=== PATIENT | male | born 1965 | race Caucasian/White ===

== ENCOUNTER 2023-06-08 09:00 | Outpatient (RCR) | payer OTHER, SELFPAY ==
--- NOTE | 2023-04-26 10:57 | HP.PTEVAL ---
Patient's Visit Information Visit Information Visit Information: PHILLIP MEZA is a 58 year old M referred to Physical Therapy by SIDNEY HALL with a diagnosis of L femur fracture. Date of Evaluation: 04/26/23 Physical Therapist: Kunal Hughes DPT Visit Plan Frequency: 3x /Week Duration: 6 Weeks Plan: Physician had listed aquatic therapy as an option, but was not approved on his C9. I am asking to add this to his C9 in order to work on flexibility, mobility and aerobic fitness x1 per week in aquatic setting. He will do land PT x2 per week in conjunction. Working on LLE strength, ROM, Work on hip/core strengthening and stability in SLS. Once able to progress to work related strengthening as tolerated, simulate dragging hole, climbing ladder and lifting. Currently he will do x3 days per week on land working on core/hip strengthening, L hip ROM, HS stretching, hip flexor stretching. Progressing to dynamic strengthening as tolerated. If he gets approval we will switch to x1 day in pool, 2 on land. Subjective Subjective: Pt. is here today for his initial evaluation with diagnosis of L femur fracture with pinning. DOS: 12/09/22. Pt. was at [facility] for a few weeks then did home health. Now he is here. Pt. reports 10/20. Pt. is off until middle May. Pt. 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 He fell out of his trunk when he was unloading. Pt. has to climb ladders and platforms frequently and has to drag hosing sometimes 50-100 feet. Pt. is sleeping well. He arrives today without use of a cane. He reports recently feeling better and felt like he did not need the cane any more. Pt. reports pain at lateral thigh from hip and mid thigh, but not constantly. He reports issues with bending fwrd and putting sock/shoes on. He needs help with this. Pt. is hopeful to improve his ROM and strength in order to get back to work without limitations. He did report that at his xray a screw may have been bent, will monitor if symptoms arrise. Pain L femur region: Pain Intensity (Out of 10): 2 Pain Intensity Range: 0 and 5 Objective Objective: POSTURE: Pt. has anterior pelvic tilt. Pt. has normal wt shifting between BLEs. PALPATION: pt. has some mild soreness at lateral hip, normal healing incision. Overall doing well. NEURO: normal throughout. ROM: RLE: ankle and knee full ROM, R hip: flexion 130deg, abd 45deg, ext 10deg, ER 45deg, IR 20deg. LLE: ankle and knee full ROM; hip: flexion 100deg mild increase NW, abd 45deg mild increase NW, ext 5deg mild increase nW, ER 30deg mild increase NW, IR 15deg increase NW. Lumbar spine: flexion min loss, ext min loss, SB min loss bilat, rotation min loss bilat. Pt. has marked tight HS and hip flexors bilaterally. MMT: RLE: ankle 5/5 throughout, knee: ext 46.3#, flexion 25.5#; hip: flexion 37.9#, abd 25.1#, ext 17.3 LLE: ankle 5/5 throughout; knee: ext 27.9#, flexion 19.4#; hip: flexion 17.1#, abd 13.2#. Ext 10.3# Core strength: poor. GAIT: Pt. ambulates without AD this date. Pt. dose have a reverse [place]mb[place] like motion during L stance phase. decreased step length bilaterally. Balance/Special Test Scores Lower Extremity Functional Score: 23 6 Minute Walk Test: Pt. completed with distance of 1037feet. Increased fatigue noted. Goals Goal 1:: LTG: Pt. to be I with HEP. Goal Time Frame: 4-6 Weeks Goal 2:: STG: Pt. to start a progressive walking program at home. Goal Time Frame: 2 Weeks Goal 3:: LTG: Pt. to have increased LLE strength to at least 90% of RLE throughout. Goal Time Frame: 4-6 Weeks Goal 4:: LTG: Pt. to complete 1 flight of stairs with 1 HR with reciprocal pattern without signs of weakness in LLE. Goal Time Frame: 4-6 Weeks Goal 5:: LTG: Pt. to have increased L hip ROM, HS length and hip flexor length symmetrical to R side allowing increased ease of donning/doffing socks/shoes. Goal Time Frame: 4-6 Weeks Rehabilitation Potential Physical Therapy Diagnosis: Pt. has signs and symptoms consistent with L femur fracture with subsequent L hip hypomobility, LLE weakness, difficulty with walking, and difficulty with work related activities. Rehabilitation Potential: Excellent Anticipated Interventions Patient/Client Instruction: Educate patient on: Condition, Plan of Care, Risk Factors and Benefits of Fitness Program For the Purpose of:: To improve decision making, To facilitate caregiver knowledge, To improve self management, To prevent re-injury, To improve ability to perform tasks related to life management and To improve tolerance to ADL's Therapeutic Exercise to Include: Strength training, Power training, Endurance training, Balance training, Body mechanics, Postural training, Flexibilty training, Gait and locomotor training, In an aquatic setting and Dynamic Lumbar Stabilization For the Purpose of:: To decrease pain, To increase ROM, To improve nutrient delivery to tissue, To increase oxygenation perfusion, To improve muscle performance and motor function, To improve gait and locomotor functions, To improve health of tissue, To decrease soft tissue restriction, To increase flexibility/ROM, To improve endurance and To improve balance Text: Thank you for the opportunity to evaluate your patient. For Medicare and Medicare HMO plans, please review the plan of care and approve it. It will need to be FAXED BACK to us at [phone] for Medicare purposes. For Medicare only, by signing this I certify the plan of care. Please let me know if there are questions or concerns regarding this plan of care. Physician Signature: Date:
--- NOTE | 2023-06-08 10:08 | HP.PTREVAL ---
Re-Evaluation Intro: SIDNEY HALL, It has been my pleasure to treat PHILLIP MEZA over the last 19 visits for L femur fracture. Please see the progress note below for an update on the physical therapy plan of care! Subjective Subjective: Pt. reports overall doing better. He arrives without a cane. /, but mostly tightness. Pt. reports being 50% better overall, but still has concerns with his flexibility. He still reports having difficulty with getting his L sock and shoe on. He reports being hopeful to return to some sore of light duty in the next few weeks. Objective Objective/Function: MMT: RLE: knee ext 63.3#, flexion 38.9#; hip: flexion 57.6#, abd: 35.9# LLE: knee ext: 36.0#, flexion: 39.2#; hip: flex 19.3#, abd: 45.8# L hip ROM: ER 42deg, flexion 98deg, HS length 75deg in 90/90 position, tight adductors (slightly), + candice test, tight hip flexors as well. 6 MWT 1275 STAIRS: 2 HR with marked L hip functional weakness with both ascending and descending. gait: pt. continues to have marked lateral hip weakness with reverse Trendelenburg like pattern noted. Plan Plan Plan: At this point in time I would recommend that he continue with PT to work on ROM of flexion, extension and ER to allow for increased ability to don/doff shoes. Progress hip flexor, glute max and glute medius to improve stability with gait. Progress functional work activities. We are awaiting new c9 approval. Balance/Gait/Functional tests Balance/Special Test Scores Lower Extremity Functional Score: 23 TUG Test Time Seconds: 10.75 Tug Test: <20 sec.=mostly independent 6 Minute Walk Test: 1275 no AD Goals Goals Goal 1:: LTG: Pt. to be I with HEP. Goal Time Frame: 4-6 Weeks Goal Progress: Progressing Goal 2:: STG: Pt. to start a progressive walking program at home. Goal Time Frame: 2 Weeks Goal Progress: Progressing Goal 3:: LTG: Pt. to have increased LLE strength to at least 90% of RLE throughout. Goal Time Frame: 4-6 Weeks Goal Progress: Progressing Goal 4:: LTG: Pt. to complete 1 flight of stairs with 1 HR with reciprocal pattern without signs of weakness in LLE. Goal Time Frame: 4-6 Weeks Goal Progress: Progressing Goal 5:: LTG: Pt. to have increased L hip ROM, HS length and hip flexor length symmetrical to R side allowing increased ease of donning/doffing socks/shoes. Goal Time Frame: 4-6 Weeks Goal Progress: Progressing Goal 6:: LTG: Pt. to be able to don/doff socks and shoes of LLE without assistance. Goal Time Frame: 4-6 Weeks Anticipated Interventions Anticipated Interventions Patient/Client Instruction: Educate patient on: Condition, Plan of Care, Risk Factors and Benefits of Fitness Program For the Purpose of:: To improve decision making, To facilitate caregiver knowledge, To improve self management, To prevent re-injury, To improve ability to perform tasks related to life management and To improve tolerance to ADL's Therapeutic Exercise to Include: Strength training, Power training, Endurance training, Balance training, Body mechanics, Postural training, Flexibilty training, Gait and locomotor training, In an aquatic setting and Dynamic Lumbar Stabilization For the Purpose of:: To decrease pain, To increase ROM, To improve nutrient delivery to tissue, To increase oxygenation perfusion, To improve muscle performance and motor function, To improve gait and locomotor functions, To improve health of tissue, To decrease soft tissue restriction, To increase flexibility/ROM, To improve endurance and To improve balance Re-Evaluation Ending Re-evaluation ending: Please do not hesitate to contact me at [phone] by phone or if you have questions or concerns regarding this new plan of care! Sincerely, Kunal Hughes DPT
--- NOTE | 2023-08-01 11:27 | HP.PTDCSUM ---
Discharge Summary D/C summary: It has been my pleasure to treat PHILLIP MEZA referred by SIDNEY HALL, with the diagnosis of L femur fracture for a total of 19 visit(s). Discharge Date: Please see the following information for a summary of their discharge status. Subjective Subjective: Pt. reports overall doing better. He arrives without a cane. /, but mostly tightness. Pt. reports being 50% better overall, but still has concerns with his flexibility. He still reports having difficulty with getting his L sock and shoe on. He reports being hopeful to return to some sore of light duty in the next few weeks. Pain L femur region: Pain Intensity (Out of 10): 2 Overall Improvement % Improvement: 10 Objective Objective/Function: MMT: RLE: knee ext 63.3#, flexion 38.9#; hip: flexion 57.6#, abd: 35.9# LLE: knee ext: 36.0#, flexion: 39.2#; hip: flex 19.3#, abd: 45.8# L hip ROM: ER 42deg, flexion 98deg, HS length 75deg in 90/90 position, tight adductors (slightly), + candice test, tight hip flexors as well. 6 MWT 1275 STAIRS: 2 HR with marked L hip functional weakness with both ascending and descending. gait: pt. continues to have marked lateral hip weakness with reverse Trendelenburg like pattern noted. Goals Goal 1:: LTG: Pt. to be I with HEP. Goal Progress: Progressing Goal 2:: STG: Pt. to start a progressive walking program at home. Goal Progress: Progressing Goal 3:: LTG: Pt. to have increased LLE strength to at least 90% of RLE throughout. Goal Progress: Progressing Goal 4:: LTG: Pt. to complete 1 flight of stairs with 1 HR with reciprocal pattern without signs of weakness in LLE. Goal Progress: Progressing Goal 5:: LTG: Pt. to have increased L hip ROM, HS length and hip flexor length symmetrical to R side allowing increased ease of donning/doffing socks/shoes. Goal Progress: Progressing Goal 6:: LTG: Pt. to be able to don/doff socks and shoes of LLE without assistance. Plan Plan: At this point in time I would recommend that he continue with PT to work on ROM of flexion, extension and ER to allow for increased ability to don/doff shoes. Progress hip flexor, glute max and glute medius to improve stability with gait. Progress functional work activities. We are awaiting new c9 approval. D/C Information d/c sentence: If there are questions or concerns regarding this patient's physical therapy, please feel free to call me at [phone]. Thank you for the referral of this patient. Sincerely, Kunal Hughes, DPT Balance/Gait/Functional tests Balance/Special Test Scores Lower Extremity Functional Score: 23 TUG Test Time Seconds: 10.75 Tug Test: <20 sec.=mostly independent 6 Minute Walk Test: 1275 no AD Improvement % Improvement: 10
== END 2023-06-08 19:00 | disposition home or self-care (01) ==
LOC: PT 09:00
PROVIDERS: PCP Family Medicine
DX: S72.002D Fracture of unspecified part of neck of left femur, subsequent encounter for closed fracture with routine healing (principal)
CPT/HCPCS: 97110; 97161; 97164